=== PATIENT | female | born 1940 | race Caucasian/White ===

== ENCOUNTER 2017-09-10 15:23 | Inpatient (IN) | payer MEDICARE ==
[2017-09-10] MEDS ORDERED: cloNIDine 0.1 MG TAB PO PRN (18:51)
[2017-09-10] MEDS ORDERED: traMADol HCl 50 MG TAB PO PRN (18:51)
[2017-09-10] MEDS: FLUoxetine HCl 10 MG CAP PO SCH (21:46)
[2017-09-10] MEDS: Aspirin 81 mg Enteric Coated Tablet PO SCH (21:46)
[2017-09-10] MEDS: Senokot S 8.6-50 MG TAB PO SCH (21:47)
[2017-09-10] MEDS: Ibuprofen 200 MG TAB PO SCH (21:48)
[2017-09-10] MEDS: Polyethylene Glycol OPTH DROP 15 ML BOT EA EYE SCH (21:48)
[2017-09-10] MEDS: Fluticasone Propionate HFA 110 MCG AER INH SCH (21:52)
[2017-09-10] MEDS: RANITIDINE HCL 75 MG PO SCH (21:55)
[2017-09-10] MEDS: (Pentosan Polysulfate Sodium [Elmiron] 100 MG) PO SCH (21:55)
[2017-09-11] MEDS: Acetaminophen 500 MG TAB PO SCH ×5 (04:53→23:52)
[2017-09-11] MEDS: Levothyroxine Sodium 50 MCG TAB PO SCH (06:33)
[2017-09-11] MEDS: Ibuprofen 200 MG TAB PO SCH ×3 (06:34→21:38)
[2017-09-11] MEDS: Polyethylene Glycol OPTH DROP 15 ML BOT EA EYE SCH ×4 (08:52→21:41)
[2017-09-11] MEDS: Calcium Carbonate 500 MG ChewTAB PO SCH (08:52)
[2017-09-11] MEDS: FLUoxetine HCl 10 MG CAP PO SCH ×2 (08:54→21:37)
[2017-09-11] MEDS: Aspirin 81 mg Enteric Coated Tablet PO SCH ×2 (08:54→21:37)
[2017-09-11] MEDS: Amlodipine 10 MG TAB PO SCH (08:55)
[2017-09-11] MEDS: Senokot S 8.6-50 MG TAB PO SCH ×2 (08:56→21:38)
[2017-09-11] MEDS: RANITIDINE HCL 75 MG PO SCH ×2 (08:57→21:41)
[2017-09-11] MEDS: (Pentosan Polysulfate Sodium [Elmiron] 100 MG) PO SCH ×3 (08:58→21:41)
[2017-09-11] MEDS: TROSPIUM 20 MG TABLET PO SCH ×2 (08:59→21:38)
[2017-09-11] MEDS: (Mirabegron [Myrbetriq] 25 MG) PO SCH (08:59)
[2017-09-11] MEDS: Fluticasone Propionate HFA 110 MCG AER INH SCH ×2 (09:00→21:43)
[2017-09-11] MEDS: Famotidine 20 MG TAB PO SCH (21:37)
[2017-09-12] MEDS: Levothyroxine Sodium 50 MCG TAB PO SCH (05:31)
[2017-09-12] MEDS: Ibuprofen 200 MG TAB PO SCH ×3 (05:33→21:08)
[2017-09-12] MEDS: Acetaminophen 500 MG TAB PO SCH ×3 (05:33→17:50)
[2017-09-12] MEDS: TROSPIUM 20 MG TABLET PO SCH ×2 (10:05→21:05)
[2017-09-12] MEDS: Calcium Carbonate 500 MG ChewTAB PO SCH (10:05)
[2017-09-12] MEDS: FLUoxetine HCl 10 MG CAP PO SCH ×2 (10:05→21:02)
[2017-09-12] MEDS: Famotidine 20 MG TAB PO SCH ×2 (10:07→21:02)
[2017-09-12] MEDS: Senokot S 8.6-50 MG TAB PO SCH ×2 (10:07→21:03)
[2017-09-12] MEDS: Aspirin 81 mg Enteric Coated Tablet PO SCH ×2 (10:08→21:01)
[2017-09-12] MEDS: Amlodipine 10 MG TAB PO SCH (10:08)
[2017-09-12] MEDS: Fluticasone Propionate HFA 110 MCG AER INH SCH ×2 (10:11→21:06)
[2017-09-12] MEDS: RANITIDINE HCL 75 MG PO SCH ×2 (10:12→21:12)
[2017-09-12] MEDS: (Mirabegron [Myrbetriq] 25 MG) PO SCH (10:12)
[2017-09-12] MEDS: (Pentosan Polysulfate Sodium [Elmiron] 100 MG) PO SCH ×3 (10:12→21:11)
[2017-09-12] MEDS: Polyethylene Glycol OPTH DROP 15 ML BOT EA EYE SCH ×4 (10:24→21:06)
[2017-09-13] MEDS: Acetaminophen 500 MG TAB PO SCH ×4 (00:22→18:33)
[2017-09-13] MEDS: Levothyroxine Sodium 50 MCG TAB PO SCH (06:05)
[2017-09-13] MEDS: Ibuprofen 200 MG TAB PO SCH ×3 (06:06→22:38)
[2017-09-13] MEDS: Senokot S 8.6-50 MG TAB PO SCH ×2 (08:42→22:00)
[2017-09-13] MEDS: Calcium Carbonate 500 MG ChewTAB PO SCH (08:42)
[2017-09-13] MEDS: FLUoxetine HCl 10 MG CAP PO SCH ×2 (08:44→21:59)
[2017-09-13] MEDS: Amlodipine 10 MG TAB PO SCH (08:45)
[2017-09-13] MEDS: TROSPIUM 20 MG TABLET PO SCH ×2 (08:45→22:00)
[2017-09-13] MEDS: Famotidine 20 MG TAB PO SCH ×2 (08:45→22:00)
[2017-09-13] MEDS: RANITIDINE HCL 75 MG PO SCH ×2 (08:46→22:01)
[2017-09-13] MEDS: (Pentosan Polysulfate Sodium [Elmiron] 100 MG) PO SCH ×3 (08:47→22:03)
[2017-09-13] MEDS: (Mirabegron [Myrbetriq] 25 MG) PO SCH (08:48)
[2017-09-13] MEDS: Fluticasone Propionate HFA 110 MCG AER INH SCH ×2 (08:49→22:01)
[2017-09-13] MEDS: Polyethylene Glycol OPTH DROP 15 ML BOT EA EYE SCH ×3 (08:51→21:58)
[2017-09-13] MEDS: Aspirin 81 mg Enteric Coated Tablet PO SCH ×2 (10:08→22:00)
[2017-09-14] MEDS: Acetaminophen 500 MG TAB PO SCH ×4 (00:24→17:19)
[2017-09-14] MEDS: Ibuprofen 200 MG TAB PO SCH ×3 (06:33→22:08)
[2017-09-14] MEDS: Levothyroxine Sodium 50 MCG TAB PO SCH (06:33)
[2017-09-14] MEDS: Famotidine 20 MG TAB PO SCH ×2 (09:14→21:24)
[2017-09-14] MEDS: Aspirin 81 mg Enteric Coated Tablet PO SCH ×2 (09:14→21:24)
[2017-09-14] MEDS: FLUoxetine HCl 10 MG CAP PO SCH ×2 (09:14→21:24)
[2017-09-14] MEDS: Amlodipine 10 MG TAB PO SCH (09:15)
[2017-09-14] MEDS: Senokot S 8.6-50 MG TAB PO SCH ×2 (09:17→21:28)
[2017-09-14] MEDS: Calcium Carbonate 500 MG ChewTAB PO SCH (09:17)
[2017-09-14] MEDS: TROSPIUM 20 MG TABLET PO SCH ×2 (09:17→21:24)
[2017-09-14] MEDS: Polyethylene Glycol OPTH DROP 15 ML BOT EA EYE SCH ×4 (09:19→21:25)
[2017-09-14] MEDS: RANITIDINE HCL 75 MG PO SCH (09:23)
[2017-09-14] MEDS: Fluticasone Propionate HFA 110 MCG AER INH SCH (09:25)
[2017-09-14] MEDS: (Pentosan Polysulfate Sodium [Elmiron] 100 MG) PO SCH ×2 (09:25→14:49)
[2017-09-14] MEDS: (Mirabegron [Myrbetriq] 25 MG) PO SCH (09:26)
[2017-09-14] MEDS: Mometasone/Formoterol 60 PUFF AER INH SCH (21:29)
[2017-09-15] MEDS: Acetaminophen 500 MG TAB PO SCH ×4 (01:00→18:15)
[2017-09-15] MEDS: Levothyroxine Sodium 50 MCG TAB PO SCH (06:18)
[2017-09-15] MEDS: Ibuprofen 200 MG TAB PO SCH ×3 (06:50→21:21)
[2017-09-15] MEDS: Mometasone/Formoterol 60 PUFF AER INH SCH ×2 (09:49→21:21)
[2017-09-15] MEDS: (Mirabegron [Myrbetriq] 25 MG) PO SCH (09:53)
[2017-09-15] MEDS: TROSPIUM 20 MG TABLET PO SCH ×2 (09:54→21:20)
[2017-09-15] MEDS: Famotidine 20 MG TAB PO SCH ×2 (09:56→21:20)
[2017-09-15] MEDS: FLUoxetine HCl 10 MG CAP PO SCH ×2 (09:56→21:19)
[2017-09-15] MEDS: Aspirin 81 mg Enteric Coated Tablet PO SCH ×2 (09:56→21:20)
[2017-09-15] MEDS: Amlodipine 10 MG TAB PO SCH (09:57)
[2017-09-15] MEDS: Polyethylene Glycol OPTH DROP 15 ML BOT EA EYE SCH ×4 (09:58→21:20)
[2017-09-15] MEDS: Senokot S 8.6-50 MG TAB PO SCH ×2 (09:59→21:21)
[2017-09-15] MEDS: Calcium Carbonate 500 MG ChewTAB PO SCH (10:16)
[2017-09-16] MEDS: Acetaminophen 500 MG TAB PO SCH ×4 (00:42→17:27)
[2017-09-16] MEDS: Ibuprofen 200 MG TAB PO SCH ×3 (06:34→21:49)
[2017-09-16] MEDS: Levothyroxine Sodium 50 MCG TAB PO SCH (06:34)
[2017-09-16] MEDS: Aspirin 81 mg Enteric Coated Tablet PO SCH ×2 (09:44→21:45)
[2017-09-16] MEDS: Amlodipine 10 MG TAB PO SCH (09:44)
[2017-09-16] MEDS: Senokot S 8.6-50 MG TAB PO SCH ×2 (09:47→21:45)
[2017-09-16] MEDS: Famotidine 20 MG TAB PO SCH ×2 (09:47→21:45)
[2017-09-16] MEDS: FLUoxetine HCl 10 MG CAP PO SCH ×2 (09:48→21:45)
[2017-09-16] MEDS: Mometasone/Formoterol 60 PUFF AER INH SCH ×2 (09:48→21:49)
[2017-09-16] MEDS: Calcium Carbonate 500 MG ChewTAB PO SCH (09:48)
[2017-09-16] MEDS: TROSPIUM 20 MG TABLET PO SCH ×2 (09:51→21:45)
[2017-09-16] MEDS: Polyethylene Glycol OPTH DROP 15 ML BOT EA EYE SCH ×4 (09:51→21:44)
[2017-09-16] MEDS: (Mirabegron [Myrbetriq] 25 MG) PO SCH (09:54)
[2017-09-17] MEDS: Acetaminophen 500 MG TAB PO SCH ×3 (00:39→14:16)
[2017-09-17] MEDS: Levothyroxine Sodium 50 MCG TAB PO SCH (06:22)
[2017-09-17] MEDS: Ibuprofen 200 MG TAB PO SCH ×2 (06:51→14:16)
[2017-09-17] MEDS: Calcium Carbonate 500 MG ChewTAB PO SCH (08:43)
[2017-09-17] MEDS: FLUoxetine HCl 10 MG CAP PO SCH (08:43)
[2017-09-17] MEDS: Senokot S 8.6-50 MG TAB PO SCH (08:45)
[2017-09-17] MEDS: TROSPIUM 20 MG TABLET PO SCH (08:47)
[2017-09-17] MEDS: Aspirin 81 mg Enteric Coated Tablet PO SCH (09:49)
[2017-09-17] MEDS: Famotidine 20 MG TAB PO SCH (09:49)
[2017-09-17] MEDS: Amlodipine 10 MG TAB PO SCH (09:49)
[2017-09-17] MEDS: Mometasone/Formoterol 60 PUFF AER INH SCH (09:51)
[2017-09-17] MEDS: (Mirabegron [Myrbetriq] 25 MG) PO SCH (09:53)
[2017-09-17] MEDS: Polyethylene Glycol OPTH DROP 15 ML BOT EA EYE SCH ×2 (09:54→14:16)
[2017-09-17 17:25] VITALS: BP 126/62; TEMP 98.1
== END 2017-09-17 18:01 | disposition home or self-care (01) | DRG 561 ==
LOC: BURMED 17:50
PROVIDERS: ADMIT Family Medicine; ATTEND Family Medicine
DX: S72.012D Unspecified intracapsular fracture of left femur, subsequent encounter for closed fracture with routine healing (principal); Z96.651 Presence of right artificial knee joint; E03.9 Hypothyroidism, unspecified; J45.909 Unspecified asthma, uncomplicated; I10 Essential (primary) hypertension; N30.10 Interstitial cystitis (chronic) without hematuria
CPT/HCPCS: 94664; G8978-GP-CJ; G8979-GP-CH; G8987-GO-CJ; G8988-GO-CI

== ENCOUNTER 2017-12-28 11:06 | Inpatient (IN) | payer MEDICARE ==
[2017-12-28] MEDS ORDERED: Polyethylene Glycol OPTH DROP 15 ML BOT EA EYE PRN (12:15)
[2017-12-28] MEDS ORDERED: Acetaminophen 500 MG TAB PO PRN (12:17)
[2017-12-28] MEDS ORDERED: Calcium Carbonate 500 MG ChewTAB PO PRN (12:18)
[2017-12-28] MEDS ORDERED: Ondansetron ODT 4 MG TAB SL PRN (12:19)
[2017-12-28] MEDS: traMADol HCl 50 MG TAB PO PRN (12:49)
[2017-12-28] MEDS ORDERED: [UNRECOGNIZED DRUG - REMARK] FS SCH (13:30)
[2017-12-28] MEDS: Fluticasone Propionate HFA 110 MCG AER INH SCH (18:17)
[2017-12-28] MEDS ORDERED: Fluticasone Propionate HFA 110 MCG AER INH SCH (19:00)
[2017-12-28] MEDS: Levothyroxine Sodium 50 MCG TAB PO SCH (20:08)
[2017-12-28] MEDS: Famotidine 20 MG TAB PO SCH (20:08)
[2017-12-28] MEDS: TROSPIUM 20 MG TABLET PO SCH (20:08)
[2017-12-28] MEDS: FLUoxetine HCl 10 MG CAP PO SCH (20:10)
[2017-12-28] MEDS: HYDROcodone/Acetaminophen 5/325 mg Tablet PO PRN (20:10)
[2017-12-29] MEDS: HYDROcodone/Acetaminophen 5/325 mg Tablet PO PRN ×3 (03:22→17:56)
[2017-12-29] MEDS: FLUoxetine HCl 10 MG CAP PO SCH ×2 (08:44→20:33)
[2017-12-29] MEDS: Cyanocobalamin (Vitamin B-12) 1,000 MCG TAB PO SCH (08:45)
[2017-12-29] MEDS: Famotidine 20 MG TAB PO SCH ×2 (08:46→20:33)
[2017-12-29] MEDS: Fluticasone Propionate HFA 110 MCG AER INH SCH ×2 (08:47→20:48)
[2017-12-29] MEDS ORDERED: Prevnar 13-Val Conj/PF 0.5 ML SYRINGE IM ONE (09:00)
[2017-12-29] MEDS: TRIPLE FLEX PO SCH (10:49)
[2017-12-29] MEDS: TURMERIC PO SCH (10:49)
[2017-12-29] MEDS ORDERED: Docusate 100 MG CAP PO PRN (11:58)
[2017-12-29] MEDS: traMADol HCl 50 MG TAB PO PRN ×2 (12:07→20:31)
[2017-12-29] MEDS ORDERED: Calcium Carbonate 500 MG ChewTAB PO PRN (13:16)
[2017-12-29] MEDS ORDERED: Acetaminophen 500 MG TAB PO PRN (13:16)
[2017-12-29] MEDS ORDERED: cloNIDine 0.1 MG TAB PO PRN (13:16)
[2017-12-29] MEDS ORDERED: Polyethylene Glycol OPTH DROP 15 ML BOT EA EYE SCH (13:30)
[2017-12-29] MEDS: TROSPIUM 20 MG TABLET PO SCH (20:31)
[2017-12-29] MEDS: Levothyroxine Sodium 50 MCG TAB PO SCH (20:34)
[2017-12-29] MEDS: Enoxaparin Sodium 30 MG/0.3 ML SYRINGE SC SCH (20:34)
[2017-12-29] MEDS ORDERED: DARIFENACIN HYDROBROMIDE 7.5 MG PO SCH (21:00)
[2017-12-29] MEDS ORDERED: Aspirin 81 mg Enteric Coated Tablet PO SCH (21:00)
[2017-12-29] MEDS ORDERED: RANITIDINE HCL 150 MG PO SCH (21:00)
[2017-12-29] MEDS ORDERED: Non-Formulary Item 1 EACH (Fluoxetine Hcl [Fluoxetine Hcl] 20 MG) PO SCH (21:00)
[2017-12-29] MEDS ORDERED: Levothyroxine Sodium 50 MCG TAB PO SCH (21:00)
[2017-12-30] MEDS: HYDROcodone/Acetaminophen 5/325 mg Tablet PO PRN ×3 (01:05→22:23)
[2017-12-30] MEDS ORDERED: TURMERIC PO SCH (09:00)
[2017-12-30] MEDS ORDERED: VIT B PO SCH (09:00)
[2017-12-30] MEDS: FLUoxetine HCl 10 MG CAP PO SCH ×2 (09:06→20:26)
[2017-12-30] MEDS: Cyanocobalamin (Vitamin B-12) 1,000 MCG TAB PO SCH (09:07)
[2017-12-30] MEDS: Famotidine 20 MG TAB PO SCH ×2 (09:08→20:27)
[2017-12-30] MEDS: TURMERIC PO SCH (09:10)
[2017-12-30] MEDS: TRIPLE FLEX PO SCH (09:10)
[2017-12-30] MEDS: Fluticasone Propionate HFA 110 MCG AER INH SCH ×2 (13:05→20:28)
[2017-12-30] MEDS: Enoxaparin Sodium 30 MG/0.3 ML SYRINGE SC SCH (20:24)
[2017-12-30] MEDS: TROSPIUM 20 MG TABLET PO SCH (20:27)
[2017-12-30] MEDS: Levothyroxine Sodium 50 MCG TAB PO SCH (20:27)
[2017-12-31] MEDS: Cyanocobalamin (Vitamin B-12) 1,000 MCG TAB PO SCH (08:22)
[2017-12-31] MEDS: FLUoxetine HCl 10 MG CAP PO SCH ×2 (08:22→20:18)
[2017-12-31] MEDS: Famotidine 20 MG TAB PO SCH ×2 (08:23→20:18)
[2017-12-31] MEDS: HYDROcodone/Acetaminophen 5/325 mg Tablet PO PRN ×2 (08:23→13:59)
[2017-12-31] MEDS: TRIPLE FLEX PO SCH (08:26)
[2017-12-31] MEDS: TURMERIC PO SCH (08:26)
[2017-12-31] MEDS: Fluticasone Propionate HFA 110 MCG AER INH SCH ×2 (08:32→20:34)
[2017-12-31] MEDS: Levothyroxine Sodium 50 MCG TAB PO SCH (20:18)
[2017-12-31] MEDS: TROSPIUM 20 MG TABLET PO SCH (20:18)
[2017-12-31] MEDS: Enoxaparin Sodium 30 MG/0.3 ML SYRINGE SC SCH (20:18)
[2018-01-01] MEDS: traMADol HCl 50 MG TAB PO PRN (00:42)
[2018-01-01] MEDS: Cyanocobalamin (Vitamin B-12) 1,000 MCG TAB PO SCH (08:17)
[2018-01-01] MEDS: FLUoxetine HCl 10 MG CAP PO SCH ×2 (08:18→20:42)
[2018-01-01] MEDS: Famotidine 20 MG TAB PO SCH ×2 (08:19→20:42)
[2018-01-01] MEDS: Fluticasone Propionate HFA 110 MCG AER INH SCH ×2 (08:21→20:46)
[2018-01-01] MEDS: HYDROcodone/Acetaminophen 5/325 mg Tablet PO PRN ×3 (08:33→21:42)
[2018-01-01] MEDS: TRIPLE FLEX PO SCH (11:11)
[2018-01-01] MEDS: TURMERIC PO SCH (11:11)
[2018-01-01] MEDS: Levothyroxine Sodium 50 MCG TAB PO SCH (20:41)
[2018-01-01] MEDS: TROSPIUM 20 MG TABLET PO SCH (20:41)
[2018-01-01] MEDS: Enoxaparin Sodium 30 MG/0.3 ML SYRINGE SC SCH (20:42)
[2018-01-01] MEDS ORDERED: Docusate 100 MG CAP PO SCH ×2 (21:30)
[2018-01-02] MEDS: HYDROcodone/Acetaminophen 5/325 mg Tablet PO PRN ×3 (08:13→21:35)
[2018-01-02] MEDS: FLUoxetine HCl 10 MG CAP PO SCH ×2 (08:14→21:34)
[2018-01-02] MEDS: Cyanocobalamin (Vitamin B-12) 1,000 MCG TAB PO SCH (08:21)
[2018-01-02] MEDS: Docusate 100 MG CAP PO SCH (08:22)
[2018-01-02] MEDS: Famotidine 20 MG TAB PO SCH ×2 (08:22→21:34)
[2018-01-02] MEDS: Fluticasone Propionate HFA 110 MCG AER INH SCH ×2 (08:23→23:12)
[2018-01-02] MEDS: TURMERIC PO SCH (10:08)
[2018-01-02] MEDS: TRIPLE FLEX PO SCH (10:08)
[2018-01-02] MEDS: TROSPIUM 20 MG TABLET PO SCH (21:34)
[2018-01-02] MEDS: Enoxaparin Sodium 30 MG/0.3 ML SYRINGE SC SCH (21:35)
[2018-01-02] MEDS: Levothyroxine Sodium 50 MCG TAB PO SCH (21:35)
[2018-01-03] MEDS: Fluticasone Propionate HFA 110 MCG AER INH SCH ×2 (08:12→20:39)
[2018-01-03] MEDS: FLUoxetine HCl 10 MG CAP PO SCH ×2 (08:14→20:29)
[2018-01-03] MEDS: HYDROcodone/Acetaminophen 5/325 mg Tablet PO PRN ×3 (08:15→20:29)
[2018-01-03] MEDS: Famotidine 20 MG TAB PO SCH ×2 (08:17→20:29)
[2018-01-03] MEDS: Cyanocobalamin (Vitamin B-12) 1,000 MCG TAB PO SCH (08:17)
[2018-01-03] MEDS: Docusate 100 MG CAP PO SCH (08:18)
[2018-01-03] MEDS: TRIPLE FLEX PO SCH (08:19)
[2018-01-03] MEDS: TURMERIC PO SCH (08:19)
[2018-01-03] MEDS: Levothyroxine Sodium 50 MCG TAB PO SCH (20:29)
[2018-01-03] MEDS: TROSPIUM 20 MG TABLET PO SCH (20:29)
[2018-01-03] MEDS: Enoxaparin Sodium 30 MG/0.3 ML SYRINGE SC SCH (20:30)
[2018-01-04 05:06] LABS: Hemoglobin 10.7 g/dL (12.0-16.0); Platelet Count 562 thou/uL (130-400)
[2018-01-04] MEDS: HYDROcodone/Acetaminophen 5/325 mg Tablet PO PRN ×3 (08:38→21:53)
[2018-01-04] MEDS: Cyanocobalamin (Vitamin B-12) 1,000 MCG TAB PO SCH (08:39)
[2018-01-04] MEDS: Docusate 100 MG CAP PO SCH (08:40)
[2018-01-04] MEDS: Famotidine 20 MG TAB PO SCH ×2 (08:40→20:14)
[2018-01-04] MEDS: FLUoxetine HCl 10 MG CAP PO SCH ×2 (08:40→20:15)
[2018-01-04] MEDS: TURMERIC PO SCH (11:09)
[2018-01-04] MEDS: TRIPLE FLEX PO SCH (11:09)
[2018-01-04] MEDS: Fluticasone Propionate HFA 110 MCG AER INH SCH ×2 (11:13→20:16)
[2018-01-04] MEDS: traMADol HCl 50 MG TAB PO PRN (12:41)
[2018-01-04] MEDS: TROSPIUM 20 MG TABLET PO SCH (20:14)
[2018-01-04] MEDS: Levothyroxine Sodium 50 MCG TAB PO SCH (20:15)
[2018-01-04] MEDS: Enoxaparin Sodium 30 MG/0.3 ML SYRINGE SC SCH (20:15)
[2018-01-05] MEDS ORDERED: Famotidine 20 MG TAB ONE (08:13)
[2018-01-05] MEDS: FLUoxetine HCl 10 MG CAP PO SCH ×2 (08:48→21:16)
[2018-01-05] MEDS: Docusate 100 MG CAP PO SCH (08:48)
[2018-01-05] MEDS: Cyanocobalamin (Vitamin B-12) 1,000 MCG TAB PO SCH (08:48)
[2018-01-05] MEDS: Famotidine 20 MG TAB PO SCH ×2 (08:48→21:15)
[2018-01-05] MEDS: Fluticasone Propionate HFA 110 MCG AER INH SCH ×2 (08:51→21:00)
[2018-01-05] MEDS: HYDROcodone/Acetaminophen 5/325 mg Tablet PO PRN ×3 (08:52→21:18)
[2018-01-05] MEDS: TURMERIC PO SCH (09:40)
[2018-01-05] MEDS: TRIPLE FLEX PO SCH (09:40)
[2018-01-05] MEDS: TROSPIUM 20 MG TABLET PO SCH (21:16)
[2018-01-05] MEDS: Levothyroxine Sodium 50 MCG TAB PO SCH (21:17)
[2018-01-05] MEDS: Enoxaparin Sodium 30 MG/0.3 ML SYRINGE SC SCH (21:17)
[2018-01-06 05:12] LABS: Hemoglobin 10.7 g/dL (12.0-16.0); Platelet Count 640 thou/uL (130-400)
[2018-01-06] MEDS: HYDROcodone/Acetaminophen 5/325 mg Tablet PO PRN ×3 (07:54→20:36)
[2018-01-06] MEDS: FLUoxetine HCl 10 MG CAP PO SCH ×2 (07:56→20:36)
[2018-01-06] MEDS: Famotidine 20 MG TAB PO SCH ×2 (07:57→20:36)
[2018-01-06] MEDS: Docusate 100 MG CAP PO SCH (07:57)
[2018-01-06] MEDS: Cyanocobalamin (Vitamin B-12) 1,000 MCG TAB PO SCH (07:58)
[2018-01-06] MEDS: Fluticasone Propionate HFA 110 MCG AER INH SCH ×2 (08:00→20:38)
[2018-01-06] MEDS: TRIPLE FLEX PO SCH (08:01)
[2018-01-06] MEDS: TURMERIC PO SCH (08:02)
[2018-01-06] MEDS: Enoxaparin Sodium 30 MG/0.3 ML SYRINGE SC SCH (20:35)
[2018-01-06] MEDS: Levothyroxine Sodium 50 MCG TAB PO SCH (20:36)
[2018-01-06] MEDS: TROSPIUM 20 MG TABLET PO SCH (20:36)
[2018-01-07] MEDS: HYDROcodone/Acetaminophen 5/325 mg Tablet PO PRN ×3 (08:22→20:30)
[2018-01-07] MEDS: FLUoxetine HCl 10 MG CAP PO SCH ×2 (08:43→20:30)
[2018-01-07] MEDS: Famotidine 20 MG TAB PO SCH ×2 (08:44→20:30)
[2018-01-07] MEDS: Cyanocobalamin (Vitamin B-12) 1,000 MCG TAB PO SCH (08:45)
[2018-01-07] MEDS: Docusate 100 MG CAP PO SCH (08:45)
[2018-01-07] MEDS: TRIPLE FLEX PO SCH (08:50)
[2018-01-07] MEDS: TURMERIC PO SCH (08:50)
[2018-01-07] MEDS: Fluticasone Propionate HFA 110 MCG AER INH SCH (08:52)
[2018-01-07] MEDS ORDERED: Mometasone 100 MCG HFA INHALER INH ONE (09:00)
[2018-01-07] MEDS: TROSPIUM 20 MG TABLET PO SCH (20:30)
[2018-01-07] MEDS: Levothyroxine Sodium 50 MCG TAB PO SCH (20:30)
[2018-01-07] MEDS: Enoxaparin Sodium 30 MG/0.3 ML SYRINGE SC SCH (20:31)
[2018-01-08 05:08] LABS: Platelet Count 680 thou/uL (130-400)
[2018-01-08] MEDS: HYDROcodone/Acetaminophen 5/325 mg Tablet PO PRN ×3 (08:02→21:24)
[2018-01-08] MEDS: Docusate 100 MG CAP PO SCH (08:39)
[2018-01-08] MEDS: Famotidine 20 MG TAB PO SCH ×2 (08:40→21:26)
[2018-01-08] MEDS: FLUoxetine HCl 10 MG CAP PO SCH ×2 (08:40→21:26)
[2018-01-08] MEDS: Cyanocobalamin (Vitamin B-12) 1,000 MCG TAB PO SCH (08:40)
[2018-01-08] MEDS: Mometasone 100 MCG HFA INHALER INH SCH (11:58)
[2018-01-08 18:06] VITALS: BMI 22.4
[2018-01-08] MEDS: Enoxaparin Sodium 30 MG/0.3 ML SYRINGE SC SCH (21:23)
[2018-01-08] MEDS: cloNIDine 0.1 MG TAB PO PRN (21:24)
[2018-01-08] MEDS: TROSPIUM 20 MG TABLET PO SCH (21:25)
[2018-01-08] MEDS: Levothyroxine Sodium 50 MCG TAB PO SCH (21:25)
[2018-01-09] MEDS: cloNIDine 0.1 MG TAB PO PRN (05:17)
[2018-01-09 06:09] VITALS: TEMP 98.3
[2018-01-09 06:20] VITALS: BP 123/57
[2018-01-09] MEDS: FLUoxetine HCl 10 MG CAP PO SCH (08:25)
[2018-01-09] MEDS: Famotidine 20 MG TAB PO SCH (08:26)
[2018-01-09] MEDS: Cyanocobalamin (Vitamin B-12) 1,000 MCG TAB PO SCH (08:26)
[2018-01-09] MEDS: Docusate 100 MG CAP PO SCH (08:26)
[2018-01-09] MEDS: Mometasone 100 MCG HFA INHALER INH SCH (08:27)
--- NOTE | 2018-01-10 04:34 | DIS ---
DATE OF ADMISSION: 12/28/2017 DATE OF DISCHARGE: 01/09/2018 ADMISSION DIAGNOSIS: Status post left total knee replacement. SECONDARY DIAGNOSES: 1. Hypothyroidism. 2. Hypertension. 3. Gastroesophageal reflux disease. 4. Anxiety and depression. PROCEDURES: None. HOSPITAL COURSE: A 77-year-old female with status post left total knee replacement via Dr. Vargas and presented to our facility to participate with Physical Therapy and Occupational Therapy. The patient had no significant complications during her stay. Her usual medications were resumed. Her pain was well controlled during her stay. She was able to progress with the goal set forth by Physical Therapy and Occupational Therapy to enable her to be to able to return back to her home setting at this time. The plan is for her to resume physical therapy and occupational therapy at [facility]. She is comfortable with her progress and amenable to discharge to her home setting at this time. DISPOSITION: Follow up with Dr. Vargas as scheduled. She needs to follow up with her primary care provider as well. She is to resume physical therapy and occupational therapy at [facility]. DISCHARGE MEDICATIONS: Include: 1. Systane ultra lubricant eye drops, 1 to 2 drops each eye as directed. 2. Levothyroxine 50 mcg p.o. daily. 3. Enablex 7.5 mg p.o. daily. 4. Clonidine 0.1 mg one tab daily as needed. 5. Fluoxetine 20 mg p.o. b.i.d. 6. Ranitidine 150 mg p.o. b.i.d. 7. Tylenol 1000 mg q.6 hours p.r.n. 8. Flovent 110 mcg twice daily. 9. Vitamin B12 of 500 mcg p.o. daily. 10. Turmeric 550 mg p.o. daily. 11. Calcium carbonate 1000 mg p.o. daily as needed. 12. Glucosamine chondroitin 2 tabs p.o. daily. 13. The patient has [place] 5/325 q.[address] Vargas as well. Job ID: [id number]
== END 2018-01-09 10:30 | disposition home or self-care (01) | DRG 561 ==
LOC: BURMED 11:30
PROVIDERS: ADMIT Family Medicine; ATTEND Family Medicine
DX: Z47.1 Aftercare following joint replacement surgery (principal); Z96.652 Presence of left artificial knee joint; E03.9 Hypothyroidism, unspecified; I10 Essential (primary) hypertension; K21.9 Gastro-esophageal reflux disease without esophagitis; F41.9 Anxiety disorder, unspecified; F32.9 Major depressive disorder, single episode, unspecified
CPT/HCPCS: 36415; 82565; 85014; 85018; 85049; 94664; G8978-GP-CK; G8979-GP-CH; G8987-GO-CK; G8988-GO-CI; J1650